=== PATIENT | male | born 1960 | race Caucasian/White ===

== ENCOUNTER 2018-06-04 11:51 | Day surgery (SDC) | payer BC, SELFPAY ==
[2018-06-04 12:02] VITALS: BP 135/79; PULSE 74; RESP 16; TEMP 36.8; O2SAT 96
[2018-06-04] MEDS: Lidocaine 2% Pres-Free 5 ML VIAL (12:55)
--- NOTE | 2018-06-04 13:13 | W.PM.DSUDISC ---
Discharge Plan Disposition Patient Disposition: HOME Condition: Improving Discharge Details Reason For Visit: (L) HAND TRIGGER FINGER Attending Provider: Brendan Harman Primary Care Provider: Sharri Steward Home Meds and New Rx's Prescriptions: No Action aspirin 81 MG tablet,delayed release (DR/EC) 81 mg PO DAILY RF: 0 multivitamin 1 EACH capsule 1 ea PO DAILY RF: 0 glucosam-chond ps-mdtxbs-hd ac 1 EACH capsule 2 ea PO DAILY RF: 0 ibuprofen 200 MG tablet 2 tab PO Q AM RF: 0 triamcinolone acetonide 15 GM cream 15 gm Topical BID Qty: 60 RF: 4 Discharge Instructions Additional Instructions: KEEP YOUR LEFT HAND ELEVATED ABOVE HEART LEVEL NEEDED TO HELP CONTROL PAIN AND SWELLING. EXERCISE YOUR FINGER COMFORT ALLOWS. FOR SHOWERING TOMORROW, COVER YOUR BANDAGES WITH A PLASTIC BAG AND A RUBBER BAND ABOUT THE WRIST TO KEEP THE BANDAGES DRY. ON Sunday06/06/18 YOU MAY REMOVE ALL OF YOUR BANDAGES AND GET YOUR WOUND WET IN THE SHOWER WITH SOAP AND WATER. GENTLY PAT THE STITCH DRY AND COVER WITH A BANDAID. RESUME NORMAL USE TOLERATED. FOLLOW-UP WITH DR. HARMAN IN 1 WEEK FOR STITCH REMOVAL. TAKE TYLENOL, ADVIL OR ALEVE FOR ANY DISCOMFORT. Activity:: Activity as Tolerated Remove Dressings/Wound Care:: 48 hours Shower/Bathe:: 48 hours Diet:: As Tolerated Discharge Orders Discharge Orders: Discharge Order (Routine); Ordered 06/04/18 Ordered By: Brendan Harman
--- NOTE | 2018-06-04 13:18 | PDOC.DSDIS_ITS ---
Discharge Plan Disposition Patient Disposition: HOME Condition: Improving Discharge Details Reason For Visit: (L) HAND TRIGGER FINGER Attending Provider: Brendan Harman Primary Care Provider: Sharri Steward Home Meds and New Rx's Prescriptions: No Action aspirin 81 MG tablet,delayed release (DR/EC) 81 mg PO DAILY RF: 0 multivitamin 1 EACH capsule 1 ea PO DAILY RF: 0 glucosam-chond fx-youskh-ii ac 1 EACH capsule 2 ea PO DAILY RF: 0 ibuprofen 200 MG tablet 2 tab PO Q AM RF: 0 triamcinolone acetonide 15 GM cream 15 gm Topical BID Qty: 60 RF: 4 Discharge Instructions Additional Instructions: KEEP YOUR LEFT HAND ELEVATED ABOVE HEART LEVEL NEEDED TO HELP CONTROL PAIN AND SWELLING. EXERCISE YOUR FINGER COMFORT ALLOWS. FOR SHOWERING TOMORROW, COVER YOUR BANDAGES WITH A PLASTIC BAG AND A RUBBER BAND ABOUT THE WRIST TO KEEP THE BANDAGES DRY. ON Sunday06/06/18 YOU MAY REMOVE ALL OF YOUR BANDAGES AND GET YOUR WOUND WET IN THE SHOWER WITH SOAP AND WATER. GENTLY PAT THE STITCH DRY AND COVER WITH A BANDAID. RESUME NORMAL USE TOLERATED. FOLLOW- UP WITH DR. HARMAN IN 1 WEEK FOR STITCH REMOVAL. TAKE TYLENOL, ADVIL OR ALEVE FOR ANY DISCOMFORT. Activity:: Activity as Tolerated Remove Dressings/Wound Care:: 48 hours Shower/Bathe:: 48 hours Diet:: As Tolerated Discharge Orders Discharge Orders: Discharge Order (Routine); Ordered 06/04/18 Ordered By: Brendan Harman
--- NOTE | 2018-06-04 13:30 | ROE_ITS ---
REPORT OF OPERATIVE PROCEDURE DATE OF PROCEDURE June 04, 2018 PREOPERATIVE DIAGNOSIS Trigger finger of left middle finger. POSTOPERATIVE DIAGNOSIS Trigger finger of left middle finger. PROCEDURE PERFORMED Release A1 nathalie left middle finger. SURGEON Berndan Wilson M.D. [employer]EWABLE [employer]GY ENGINEER Nurse. ANESTHETIC Anesthetic is 2% lidocaine plain. PREP ChloraPrep. INDICATIONS This patient has been bothered by triggering of his left middle finger. It often will become fixed an d locked into his palm. He was seen by me in the office two weeks ago and I recommended release of th e A1 nathalie. I explained the pathophysiology and the planned operative procedure. He understood and w ished to proceed. DESCRIPTION OF PROCEDURE I met the patient in the Day Surgery holding area. I reviewed the planned operative procedure and ma rked his left middle finger. He was taken to the Operating Suite where his left hand was prepped wit h ChloraPrep. 2% lidocaine was then used after sterile drapes were applied to create an anesthetic w heal over the metacarpal phalangeal joint region of his hand. After ensuring adequate anesthesia, a t ransverse incision was made over the A1 nathalie. Ragnell retractors were inserted and the flexor tendo n sheath was easily identified. The sheath was opened with a #15-scalpel blade, and then extended wit h Littler scissors. This was done proximally and distally until all triggering ceased. He was asked to make a very tightly clenched fist and he could do so in an unencumbered fashion. The wound was the n irrigated and then closed with a simple suture of #4-0 Nylon in a horizontal mattress fashion. The wound was dressed with Xeroform gauze, 4x4s and a 3-inch conforming gauze bandage. The patient was taken to the Recovery Room in satisfactory condition, tolerating the procedure well.
== END 2018-06-04 13:32 | disposition home or self-care (01) ==
PROVIDERS: PCP Internal Medicine; Visit Provider Orthopaedic Surgery
PROC: (CPT 26055; principal; 2018-06-04 13:00)
DX: M65.332 Trigger finger, left middle finger (principal)
CPT/HCPCS: 26055

== ENCOUNTER 2018-07-22 11:54 | Outpatient (CLI) | payer BC, SELFPAY ==
[2018-07-22 13:08] LABS: Abs Immature Grans 0.01 k/cumm (0.0-0.09); Absolute Basophil Count 0.01 k/cumm (0.0-0.2); Absolute Eosinophil Count 0.06 k/cumm (0.0-0.7); Absolute Lymphocyte Count 1.76 k/cumm (1.2-3.4); Absolute Monocyte Count 0.38 k/cumm (0.11-0.7); Absolute Neutrophil Count 2.74 k/cumm (1.2-6.7); Basophils % 0.2; Eosinophils % 1.2; HCT 41.2 % (40.0-50.0); HGB 14.2 g/dL (13.5-17.5); Immature Grans % 0.2; Lymphocytes % 35.5; Mean Corp. HGB Concentration 34.5 g/dL (32.0-36.0); Mean Corpuscular Hemoglobin 31.8 pg (27.0-33.0); Mean Corpuscular Volume 92.4 fL (80-95); Mean Platelet Volume 9.5 fL (8.0-11.0); Monocytes % 7.7; Neutrophils % 55.2; Platelet Count 247 x1000/uL (130-400); RBC 4.46 m/cumm (4.50-6.00); RBC Distribution Width 12.8 % (11.8-14.1); White Blood Cell Count 4.96 k/cumm (4.4-10.8)
[2018-07-22 13:39] LABS: ALT 57 U/L (12-78); AST 38 U/L (15-37); Alkaline Phosphatase 56 U/L (46-116); BUN 16 mg/dL (7-18); Bilirubin, Total 0.6 mg/dL (0.2-1.0); CREATININE 1.02 mg/dL (0.70-1.30); Calcium 8.9 mg/dL (8.5-10.1); Chloride 102 mmol/L (98-107); Cholesterol 185 mg/dL (50-200); Glucose 85 mg/dL (70-100); HDL Cholesterol 54 mg/dL (40-60); LDL CHOLESTEROL 114 mg/dL (<100); Potassium 4.2 mmol/L (3.5-5.1); Sodium 138 mmol/L (136-145); TSH 1.24 uIU/mL (0.358-3.74); Total Protein 7.1 g/dL (6.4-8.2); Triglyceride 94 mg/dL (30-150)
== END 2018-07-22 12:14 ==
PROVIDERS: PCP Internal Medicine; Visit Provider Internal Medicine
DX: Z00.00 Encounter for general adult medical examination without abnormal findings (principal); Z13.220 Encounter for screening for lipoid disorders; Z13.228 Encounter for screening for other metabolic disorders; Z13.29 Encounter for screening for other suspected endocrine disorder; Z13.0 Encounter for screening for diseases of the blood and blood-forming organs and certain disorders involving the immune mechanism
CPT/HCPCS: 36415; 80053; 80061; 83721; 84443; 85025

== ENCOUNTER 2018-08-07 00:19 | Outpatient (CLI) | payer BC, SELFPAY ==
--- NOTE | 2018-08-07 13:53 | MERGE_ITS ---
*[facility]* *[facility]* [address] [place] [address] Date of study: 08/07/2018 Transthoracic Echocardiography M-mode, complete 2D, complete spectral Doppler, and color Doppler *STUDY CONCLUSIONS* Summary: 1. Left ventricle: The cavity size was at the upper limits of normal. Wall thickness was normal. Systolic function was mildly reduced. The estimated ejection fraction was 45-50%. There were no regional wall motion abnormalities. 2. Aortic valve: Bicuspid; mildly thickened, mildly calcified leaflets. Valve mobility was restricted. There was mild stenosis. There was mild to moderate regurgitation. Peak velocity (S): 2.5m/sec. Mean gradient (S): 13.6mm Hg. Valve area (VTI): 1.5cm^2. 3. Aorta: The aorta was not dilated. 4. Right ventricle: The cavity size was normal. Wall thickness was normal. Systolic function was normal. *PATIENT PRESENTATION* Height: 167.6cm ((66in) ) S/D Pressure: 138 / 83 Weight: 93.9kg ((206.6lb) ) BSA: 2.13m^2 Test start time: 02:10 PM. Test stop time: 03:15 PM. PERFORMING Unknown PERFORMING [facility] ORDERING Sharri Steward REFERRING Sharri Steward REGISTERED ACCOUNT ADMINISTRATOR Loretta Hutton, RT (R)(CT), [facility] *PROCEDURE DATA* Procedure information: The patient was identified by two identifiers. This study was interpreted by [facility]. Pertinent images and digital data are archived for permanent storage and are available for subsequent review. No prior study was available for comparison. Study status: Routine. Transthoracic echocardiography. M-mode, complete 2D, complete spectral Doppler, and color Doppler. A Transthoracic Echocardiogram was performed. Scanning was performed from the parasternal, apical, subcostal, and suprasternal notch acoustic windows. Images were obtained using an [id number] cardiac ultrasound machine. Image quality was adequate. Study completion: The patient tolerated the procedure well. There were no complications. History: PMH: Murmur. *CARDIAC ANATOMY* Left ventricle: The cavity size was at the upper limits of normal. Wall thickness was normal. Systolic function was mildly reduced. The estimated ejection fraction was 45-50%. There were no regional wall motion abnormalities. Diastolic parameters were normal. Aortic valve: Bicuspid; mildly thickened, mildly calcified leaflets. Valve mobility was restricted. Doppler: There was mild stenosis. There was mild to moderate regurgitation. VTI ratio of LVOT to aortic valve: 0.37. Valve area (VTI): 1.5cm^2. Indexed valve area (VTI): 0.7cm^2/m^2. Peak velocity ratio of LVOT to aortic valve: 0.34. Valve area (Vmax): 1.4cm^2. Indexed valve area (Vmax): 0.7cm^2/m^2. Mean velocity ratio of LVOT to aortic valve: 0.37. Valve area (Vmean): 1.5cm^2. Indexed valve area (Vmean): 0.7cm^2/m^2. Mean gradient (S): 13.6mm Hg. Peak gradient (S): 24.9mm Hg. Aorta: The aorta was not dilated. Aortic root: The aortic root was normal in size. Ascending aorta: The ascending aorta was normal in size. Aortic arch: The aortic arch was normal in size. Mitral valve: Structurally normal valve. Mobility was not restricted. Doppler: Transvalvular velocity was within the normal range. There was no evidence for stenosis. There was trivial regurgitation. Valve area by pressure half-time: 4.3cm^2. Indexed valve area by pressure half-time: 2cm^2/m^2. Peak gradient (D): 2.3mm Hg. Left atrium: The atrium was normal in size. Right ventricle: The cavity size was normal. Wall thickness was normal. Systolic function was normal. Pulmonic valve: Doppler: Transvalvular velocity was within the normal range. There was no evidence for stenosis. There was no significant regurgitation. Peak gradient (S): 3.5mm Hg. Tricuspid valve: Structurally normal valve. Doppler: Transvalvular velocity was within the normal range. There was no evidence for stenosis. There was trivial regurgitation. Pulmonary artery: Pulmonary systolic pressure was within the normal range, in the range of 25mm Hg to 30mm Hg. Right atrium: The atrium was normal in size. Pericardium: There was no pericardial effusion. Systemic veins: Inferior vena cava: Well visualized. The vessel was patent and normal in size. The respirophasic diameter changes were in the normal range (greater than or equal to 50%). Baseline ECG: Bradycardia. Measurements Left ventricle Value Reference LV ID, ED, PLAX 5.8 cm 3.5 - 6.0 LV ID, ES, PLAX (H) 4.3 cm 2.1 - 4.0 LV PW thickness, ED, PLAX 1.0 cm LV end-diastolic volume, 1-p A2C 121 ml LV ejection fraction, 1-p A2C 49 % LV end-diastolic volume, 1-p A4C 122 ml LV ejection fraction, 1-p A4C 45 % LV e', lateral 0.09 m/sec LV E/e', lateral 8 LV e', medial 0.065 m/sec LV E/e', medial 12 LV e', average 0.078 m/sec LV E/e', average 10 Ventricular septum Value Reference IVS thickness, ED, PLAX 1.1 cm LVOT Value Reference LVOT ID, S 2.3 cm LVOT area 4.2 cm^2 LVOT peak velocity, S 0.84 m/sec LVOT mean velocity, S 0.65 m/sec LVOT VTI, S 19.4 cm LVOT peak gradient, S 2.8 mm Hg LVOT mean gradient, S 1.8 mm Hg Stroke volume (SV), LVOT DP 62 ml Stroke index (SV/bsa), LVOT DP 29 ml/m^2 Aortic valve Value Reference Aortic valve peak velocity, S 2.5 m/sec Aortic valve mean velocity, S 1.76 m/sec Aortic valve VTI, S 53.0 cm Aortic mean gradient, S 13.6 mm Hg Aortic peak gradient, S 24.9 mm Hg VTI ratio, LVOT/AV 0.37 Aortic valve area, VTI 1.5 cm^2 Velocity ratio, peak, LVOT/AV 0.34 Aortic valve area, peak velocity 1.4 cm^2 Velocity ratio, mean, LVOT/AV 0.37 Aortic valve area, mean velocity 1.5 cm^2 Aortic valve area/bsa, mean velocity 0.7 cm^2/m^2 Aortic regurg deceleration 322 cm/s^2 Aortic regurg pressure half-time 378 ms Aorta Value Reference Aortic root ID, ED 3.4 cm Ascending aorta ID, A-P, S 3.2 cm Left atrium Value Reference LA ID, A-P, ES 4.6 cm LA ID/bsa, A-P 2.2 cm/m^2 <=2.2 LA area, ES, A4C 22.3 cm^2 8.8 - 23.4 LA area, ES, A2C 20 cm^2 LA volume/bsa, ES, 1-p A4C 37 ml/m^2 LA volume, ES, 2-p 65 ml LA volume/bsa, ES, 2-p 31 ml/m^2 LA/aortic root ratio 1.37 Mitral valve Value Reference Mitral annulus diameter, A-P, D 2.4 cm Mitral E-wave peak velocity 0.76 m/sec Mitral A-wave peak velocity 0.41 m/sec Mitral deceleration time 177 ms 150 - 230 Mitral pressure half-time 51 ms Mitral peak gradient, D 2.3 mm Hg Mitral E/A ratio, peak 1.84 Mitral valve area, PHT, DP 4.3 cm^2 Pulmonary veins Value Reference Pulmonary vein peak velocity, S 0.67 m/sec Pulmonary vein peak velocity, D 0.66 m/sec Pulmonary vein velocity ratio, peak, 1.02 S/D Pulmonary vein A-wave reversal peak 0.4 m/sec velocity Tricuspid valve Value Reference Tricuspid regurg peak velocity 2.8 m/sec Tricuspid peak RV-RA gradient 30.3 mm Hg Right atrium Value Reference RA area, ES, A4C 17.3 cm^2 8.3 - 19.5 Pulmonic valve Value Reference Pulmonic peak gradient, S 3.5 mm Hg Legend: (L) and (H) celestino values outside specified reference range. I have personally reviewed the images and have reviewed and edited the reported findings. Electronically signed by To Alegria 08/08/2018 07:46
== END 2018-08-07 00:39 ==
PROVIDERS: PCP Internal Medicine; Visit Provider Internal Medicine
DX: R01.1 Cardiac murmur, unspecified (principal); I35.2 Nonrheumatic aortic (valve) stenosis with insufficiency
CPT/HCPCS: 93306

== ENCOUNTER 2019-07-23 09:09 | Outpatient (CLI) | payer BC, SELFPAY ==
[2019-07-23 11:17] LABS: Abs Immature Grans 0.03 k/cumm (0.0-0.09); Absolute Basophil Count 0.01 k/cumm (0.0-0.2); Absolute Eosinophil Count 0.05 k/cumm (0.0-0.7); Absolute Monocyte Count 0.41 k/cumm (0.11-0.7); Absolute Neutrophil Count 2.76 k/cumm (1.2-6.7); Basophils % 0.2; HGB 15.3 g/dL (13.5-17.5); Immature Grans % 0.6; Lymphocytes % 35.6; Mean Corp. HGB Concentration 34.8 g/dL (32.0-36.0); Mean Corpuscular Volume 92.1 fL (80-95); Mean Platelet Volume 9.3 fL (8.0-11.0); Monocytes % 8.1; Neutrophils % 54.5; Platelet Count 286 x1000/uL (130-400); RBC 4.78 m/cumm (4.50-6.00); RBC Distribution Width 13.2 % (11.8-14.1); White Blood Cell Count 5.06 k/cumm (4.4-10.8)
[2019-07-23 11:32] LABS: ALT 53 U/L (16-63); AST 25 U/L (15-37); Albumin 4.2 g/dL (3.4-5.0); Alkaline Phosphatase 54 U/L (46-116); Anion Gap 7.6 mmol/L (3-11); BUN 15 mg/dL (7-18); Bilirubin, Total 0.7 mg/dL (0.2-1.0); CO2 29.4 mmol/L (21.0-32.0); CREATININE 1.04 mg/dL (0.70-1.30); Calcium 9.1 mg/dL (8.5-10.1); Calculated LDL 115 mg/dL; Chloride 104 mmol/L (98-107); Cholesterol 189 mg/dL (<200); Glucose 93 mg/dL (74-106); HDL Cholesterol 44 mg/dL (40-60); Potassium 4.9 mmol/L (3.5-5.1); Sodium 141 mmol/L (136-145); Total Protein 7.5 g/dL (6.4-8.2); Triglyceride 154 mg/dL (<150)
== END 2019-07-23 09:29 ==
PROVIDERS: PCP Internal Medicine; Visit Provider Internal Medicine
DX: Z00.00 Encounter for general adult medical examination without abnormal findings (principal); R50.9 Fever, unspecified; Z13.220 Encounter for screening for lipoid disorders
CPT/HCPCS: 36415; 80053; 80061; 85025

== ENCOUNTER 2022-09-06 01:35 | Outpatient (CLI) | payer OTHER, SELFPAY ==
--- NOTE | 2022-09-06 08:11 | DI.RAD_ITS ---
Exam(s) XR HAND LT COMPLETE EXAM: XR HAND LT COMPLETE CLINICAL HISTORY: Increased pain with activity,pain lt thumb, m79.645. TECHNIQUE: 2D digital imaging was performed. Three views. COMPARISON: No exams were available for comparison FINDINGS: BONES: No acute fracture is present. No bony destructive lesion is seen. JOINTS: No dislocation present. There are degenerative changes at the 1st carpal metacarpal joint, with joint space narrowing and mild periarticular spurring as well as subchondral cyst formation. Th ere is mild lateral subluxation. Degenerative changes are also seen in the interphalangeal joints of the fingers and thumb. SOFT TISSUE: Normal. IMPRESSION: Findings consistent with degenerative changes, greatest at the 1st carpal metacarpal joint. DATA REPOSITORY: RADIATION DOSE DELIVERED:
== END 2022-09-06 01:55 ==
PROVIDERS: PCP Nurse Practitioner Family; Visit Provider Nurse Practitioner Family
DX: M18.12 Unilateral primary osteoarthritis of first carpometacarpal joint, left hand (principal)
CPT/HCPCS: 73130

== ENCOUNTER 2023-09-17 08:13 | Day surgery (SDC) | payer OTHER, SELFPAY ==
--- NOTE | 2023-09-16 14:50 | W.PM.DSUDISC ---
Date of service: 09/17/23 Time of Service: 11:01 Discharge Plan Disposition Patient Disposition: Home Condition: Good Discharge Details Reason For Visit: screening colonoscopy Attending Provider: Gerry Sommers Primary Care Provider: Sylvie Nelson Home Meds and New Rx's Prescriptions: Continued triamcinolone acetonide 0.5 % cream 1 applic Topical BID PRN multivitamin 1 EACH capsule 1 ea PO DAILY glucosam-chond lx-lcmvgv-kx ac 1 EACH capsule 2 ea PO DAILY ibuprofen 200 mg tablet 400 mg PO Q AM PRN ascorbic acid (vitamin C) 500 mg capsule 500 mg PO DAILY metoprolol succinate 50 mg tablet extended release 24 hr 50 mg PO DAILY valsartan 40 mg tablet 40 mg PO DAILY Discontinued bisacodyl [Dulcolax (bisacodyl)] 5 mg tablet,delayed release (DR/EC) 5 mg PO ONCE Qty: 4 0RF Rx Instructions: Take per colonoscopy instructions provided by ordering providers office polyethylene glycol 3350 17 gram/dose powder 17 g PO ONCE Qty: 238 0RF Rx Instructions: Take per colonoscopy instructions provided by ordering providers office Discharge Instructions Additional Instructions: Arnav, we were able to complete your colonoscopy today without any issues. Your prep was great. I could see everything just fine. I did not see any signs of tumors, polyps, or anything worrisome. You should consider another colonoscopy in 10 years, to reduce your chances of from colon cancer over the course of your life. 1. If tolerated, consume a soft, low fiber diet for 1-2 days. [address] Do not drive, drink alcohol, operate machinery, make critical decisions, or do activities that require coordination or balance for 24 hours. 3. Because air was put into your colon during the procedure, expelling air from your rectum (passing gas or farting) is normal. 4. You may not have a bowel movement for 1-3 days because of the colonoscopy prep. This is normal. 5. Go directly to the emergency room if you notice any of the following: Develop chills (warm to touch), or if you have a thermometer and your temperature is above 101 Difficulty breathing or difficultly swallowing Persistent vomiting Severe abdominal pain, other than gas cramps Severe chest pain Black, tarry stools Any bleeding ? exceeding one tablespoon 6. Call your physician if the site where your intravenous was started becomes red, swollen, painful, and warm to touch. 7. Your physician has reviewed your pre-procedure medications. Please continue to take those medications as previously ordered. You will be given specific information/education regarding any changes to your medications before leaving. Activity:: Activity as Tolerated Diet:: As Tolerated Discharge Orders Discharge Orders: Discharge Order (Routine); Ordered 09/16/23 Ordered By: Gerry Sommers DS: Diagnosis Discharge Diagnosis (1) Screen for colon cancer: Status: Acute Asessment and Plan: Negative screening colonoscopy. Repeat test in 10 years
--- NOTE | 2023-09-16 14:52 | W.COLOREPORT ---
Date of service: 09/17/23 Time of Service: 11:02 Colonoscopy Report Date of procedure: 09/17/23 Pre-op diagnosis general: screening colonoscopy Post-op diagnosis procedure note: other (Negative screening colonoscopy) Procedure: colonoscopy Surgeon: Gerry Sommers Anesthesia Type: General:No Airway Estimated blood loss (mL): 0 Pathology: none sent Complications: None Disposition: same day Indications: Arnav is a 62 year old man who needs his next screening colonoscopy Prep: Miralax/Dulcolax Procedure Start Time: 10:41 Procedure End Time: 10:55 Retraction Time: 10 Findings: Negative screening colonoscopy Procedure Description: After the induction of monitored anesthetic care, and with the patient in left lateral decubitus position, I began by performing an external anorectal exam.? Perineum and skin were normal, as was the anal verge.? There was no evidence of external hemorrhoids.? Next, I performed a digital rectal exam.? I did not appreciate any abnormal findings.? Next, I advanced a colonoscope into the rectal vault.? I performed retroflexion.? This was normal.? Using insufflation, I then advanced the colonoscope beyond the rectal folds and into the sigmoid colon before advancing towards the cecum.?The scope was noted to be in the cecum by identification of the ileocecal valve and appendiceal orifice.? I then began withdrawing the colonoscope using repeated irrigation as necessary for full evaluation of the colonic mucosa. ?Once the scope was withdrawn to the level of the rectum, great care was taken to examine portions of the rectal folds.? I did not see any signs of tumors, polyps, or any other worrisome pathology. Finally, the scope was withdrawn and the patient was brought to the same-day surgery recovery unit as the anesthetic wore off. ?The findings and instructions were shared with the patient prior to discharge. [place] Bowel Prep [place] Bowel Prep Right Colon: 3 Left Colon: 3 Transverse Colon: 3 Total Score: 9
[2023-09-17 08:24] VITALS: BP 143/91; PULSE 57; RESP 18; TEMP 36.7; O2SAT 100
[2023-09-17] MEDS: Lactated Ringers 1,000 ML 80 ML IV (08:41)
--- NOTE | 2023-09-17 09:34 | ANES.PREOP_ITS ---
General Info Date of Service Date Performed: 09/17/23 Height: 5 ft 5 in Weight: 91.8 kg Body Mass Index (BMI): 33.7 Surgical Procedure: Operation Date: 09/17/23 10:35 Proposed Procedure Side Surgeon arpit Sommers MD Meds Allergies and Home Medications Allergies Allergy/AdvReac Type Severity Reaction Status Date / Time No Known Allergies Allergy Unverified 09/17/23 08:21 Home Medication Medication Instructions Recorded hjvneauiou-sgxlzsifek-taiajulh-hyalur 2 ea PO DAILY 03/31/13 ac 375 mg-300 mg-175 mg-2 mg cap multivitamin 1 ea PO DAILY 03/31/13 ibuprofen 200 mg tablet 400 mg PO Q AM PRN 07/23/19 triamcinolone acetonide 0.5 % 1 applic topical BID PRN 07/23/19 topical cream ascorbic acid (vitamin C) 500 mg 500 mg PO DAILY 10/16/22 capsule metoprolol succinate 50 mg 50 mg PO DAILY 10/16/22 tablet,extended release 24 hr valsartan 40 mg tablet 40 mg PO DAILY 11/06/22 Current Visit Medications: Current Medications Generic Name Dose Route Start Last Admin Trade Name Freq PRN Reason Stop Dose Admin Hyoscyamine Sulfate 0.125 mg 09/16/23 14:53 Hyoscyamine 0.125 Mg Sl/Oral/Chew SL 10/16/23 14:52 DIRECTED PRN Ringer's Solution 1,000 mls @ 80 mls/hr 09/17/23 06:00 09/17/23 08:41 IV 09/17/23 23:59 80 mls/hr INFUSION FRANCISCO Administration IV Miscellaneous Supplies 1 each 09/17/23 06:00 Iv Access IV 09/17/23 23:59 DIRECTED FRANCISCO Ondansetron HCl 4 mg 09/16/23 14:53 Ondansetron 4 Mg/2 Ml Vial IVP 10/16/23 14:52 Q4H PRN PRN Nausea / Vomiting Sodium Chloride 0 ml 09/17/23 06:00 Normal Saline Flush 10 Ml Syr IV 09/17/23 23:59 PRN PRN Sodium Chloride 0 ml 09/17/23 06:00 Normal Saline 10 Ml Vial IJ 09/17/23 23:59 DIRECTED PRN Sterile Water 0 ml 09/17/23 06:00 Water,Injection,Sterile 10 Ml Vial IJ 09/17/23 23:59 DIRECTED PRN PFSH Active Problems Active Problems: Problem Status Onset Code Screen for colon cancer Z12.11 Osteoarthritis of first carpometacarpal joint of left hand M18.12 Vertigo R42 Migraine with aura G43.109 Pain of left thumb M79.645 Right-sided epistaxis R04.0 Nocturia R35.1 Aortic valve stenosis, mild I35.0 Tinnitus H93.19 Bicuspid aortic valve Q23.1 Knee pain M25.569 Medical History Medical History Right fibular fracture Nevus, 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 Surgical History Surgical History History of cardiac cath (~09/2022) [facility] [place]/09/22 History of ankle surgery right History of right knee surgery (04/23/14) Status post vasectomy Open Carpal Tunnel release Tobacco Smoking/Tobacco Use Status: Never Passive smoking exposure: Yes Second hand exposure: Yes Alcohol Alcohol Intake: current Alcohol intake frequency: a few times a week Alcohol type: beer and hard liquor Substance Use Substance use: Occasionally Substance use type: marijuana Details: 1 month ago last dose Vital Signs and Lab Results Vital Signs Most Recent Vital Signs in EMR: Most Recent Vital Signs Temp Pulse Resp BP Pulse Ox 36.7 C 57 L 18 143/91 H 100 09/17/23 08:24 09/17/23 08:24 09/17/23 08:24 09/17/23 08:24 09/17/23 08:24 Lab Results Blood Type / Crossmatch: No Data to Display Complete Blood Count: No Data to Display Complete Metabolic Panel: No Data to Display Liver Function Panel: No Data to Display Coagulation Panel: No Data to Display Cardiac Panel: No Data to Display Arterial Blood Gas: No Data to Display Venous Blood Gas: No Data to Display Pancreas Panel: No Data to Display Thyroid Panel: No Data to Display Infectious Disease: No Data to Display Blood Cultures: No Data to Display Toxicology Panel: No Data to Display Imaging and Studies Imaging and Studies Study information below may be from another EMR and interpreted by another provider. Please see original notes in EMR for more complete details. Echocardiogram Summary: Reviewed Cardiac C[place]terization Summary: [place] [facility] [place] Anesthesia Assessment and Plan Anesthesia History Personal History: No History of Anesthesia Complications Family History: No Family History of Anesthesia Complications Exercise Tolerance Exercise Tolerance: Metabolic Equivalents>4 Pertinent Negatives Pertinent Negatives: No Symptoms of GERD, No Major Cardiovascular Symptoms or Complaints, No Major Pulmonary Symptoms or Complaints and No History of CVA/TIA Cardiac & Pulmonary Exam Cardiac Exam: Normal S1/S2 Heart Sounds Pulmonary Exam: Clear Bilateral Breath Sounds Implantable Cardiac Device Does patient have a Pacemaker or an ICD?: No Airway Exam Known Difficult Airway: No Mallampati Class: 3 Mouth Opening: Normal (> 3cm) Thyromental Distance: Greater than 3 cm Facial Hair: Full Murry Neck Range of Motion: Full ROM Neck Circumference: Normal Teeth Condition: Normal Dentition ASA Classification ASA Score: ASA 2 Emergency Case?: No NPO Status NPO Status: NPO Clears >2 hours, Solids >8 hours Anesthesia Plan Resuscitation Status: Full Code Anesthesia Technique: General Anesthesia Airway Planned: Natural Airway Monitors Used: Standard Monitors
[2023-09-17 09:46] VITALS: BMI 33.7
[2023-09-17 11:15] VITALS: BP 111/91; PULSE 68; RESP 16; TEMP 36.5; O2SAT 97
[2023-09-17 11:32] VITALS: BP 133/94; PULSE 61; RESP 16; TEMP 36.6; O2SAT 99
--- NOTE | 2023-09-17 12:01 | W.ANESPOSTOP ---
Postoperative Evaluation Date, Time and Location Date Performed: 09/17/23 Time Performed: 11:48 Patient Location: Day Surgery Unit Vital Signs Most Recent Imported Vital Signs: Most Recent Vital Signs Temp Pulse Resp BP Pulse Ox 36.6 C 61 16 133/94 H 99 09/17/23 11:32 09/17/23 11:32 09/17/23 11:32 09/17/23 11:32 09/17/23 11:32 Pain Score Most Recent Pain Score: Most Recent Pain Score Pain Level 0 09/17/23 11:15 Assessment Mental Status: Awake (Alert & Oriented to Patient Baseline) Airway and Respiratory Function: Patent airway with normal (patient baseline) respiratory exam Cardiovascular Function: Hemodynamically Stable Hydration Status: Adequately Hydrated Nausea & Vomiting: No Nausea or Vomiting Pain: Pt. Denies Any Pain Peripheral Nerve Block: Patient did not receive a nerve block
== END 2023-09-17 08:14 | disposition home or self-care (01) ==
LOC: SUR 08:14
PROVIDERS: PCP Nurse Practitioner Family; Visit Provider Surgery
PROC: 0DJD8ZZ Inspection of Lower Intestinal Tract, Via Natural or Artificial Opening Endoscopic (ICD-10-PCS; CPT 45378; principal; 2023-09-17 10:30)
DX: Z12.11 Encounter for screening for malignant neoplasm of colon (principal)
CPT/HCPCS: 45378; J2704

== ENCOUNTER 2024-10-07 08:56 | Outpatient (CLI) | payer OTHER, SELFPAY ==
[2024-10-07 12:22] LABS: HCT 42.5 % (40.0-50.0); HGB 14.5 g/dL (13.5-17.5); MCH 31.8 pg (27.0-33.0); MCHC 34.1 % (32.0-36.0); MCV 93 fL (80-95); MPV 9.2 fL (8.0-11.0); Platelet Count 233 10^3/uL (130-400); RBC 4.56 10^6/uL (4.36-5.78); RDW 12.8 % (11.8-14.1); WBC 5.24 10^3/uL (4.4-10.8)
[2024-10-07 12:43] LABS: Hemoglobin A1C 5.5 % (<5.7)
[2024-10-07 12:51] LABS: ALT 38 U/L (16-63); AST 20 U/L (15-37); Albumin 3.7 g/dL (3.4-5.0); Alkaline Phosphatase 56 U/L (46-116); Anion Gap 4.1 mmol/L (3-11); BUN 14 mg/dL (7-18); Bilirubin, Total 0.42 mg/dL (0.2-1.0); CO2 30.9 mmol/L (21.0-32.0); CREATININE 1.1 mg/dL (0.70-1.30); Calcium 9.2 mg/dL (8.5-10.1); Calculated LDL 97 mg/dL (<100); Chloride 105 mmol/L (98-107); Cholesterol 196 mg/dL (<200); Estimated GFR 76.37 (mL/min/1.73m2); Glucose 97 mg/dL (74-106); HDL Cholesterol 46 mg/dL (40-60); Potassium 4.3 mmol/L (3.5-5.1); Sodium 140 mmol/L (136-145); Total Protein 7.6 g/dL (6.4-8.2); Triglyceride 269 mg/dL (<150)
== END 2024-10-07 08:57 | disposition home or self-care (01) ==
LOC: LOS 08:57
PROVIDERS: PCP Nurse Practitioner Family; Referring Provider Nurse Practitioner Family; Visit Provider Nurse Practitioner Family
DX: Z00.00 Encounter for general adult medical examination without abnormal findings (principal); I50.20 Unspecified systolic (congestive) heart failure; G43.109 Migraine with aura, not intractable, without status migrainosus; M25.569 Pain in unspecified knee
CPT/HCPCS: 36415; 80053; 80061; 85027; 83036

== ENCOUNTER 2025-04-20 15:07 | Outpatient (REF) | payer OTHER, SELFPAY ==
[2025-04-21 10:47] LABS: HSV 1 DNA Result Positive (Negative); HSV 2 DNA Result Negative (Negative)
[2025-04-21 12:15] LABS: Chlamydia Result Negative (Negative); GC Result Negative (Negative)
== END 2025-04-20 15:08 | disposition home or self-care (01) ==
LOC: LBN 15:07
PROVIDERS: PCP Nurse Practitioner Family; Visit Provider Physician Assistant
DX: N39.0 Urinary tract infection, site not specified (principal); R10.32 Left lower quadrant pain
CPT/HCPCS: 87077; 87491; 87529; 87591; 87070; 87086; 87186; 87205

== ENCOUNTER 2025-05-20 04:08 | Outpatient (CLI) | payer OTHER, SELFPAY ==
[2025-05-22 10:19] LABS: HSV Type 2 Ab, IgG Negative (Negative)
== END 2025-05-20 04:09 | disposition home or self-care (01) ==
LOC: LOS 04:09
PROVIDERS: PCP Nurse Practitioner Family; Visit Provider Nurse Practitioner Family
DX: B00.9 Herpesviral infection, unspecified (principal)
CPT/HCPCS: 36415; 86695; 86696